=== PATIENT | male | born 1945 ===

== ENCOUNTER 2023-12-17 07:01 | Day surgery (SDC) | payer OTHER ==
--- NOTE | 2023-12-14 14:09 | RAD REPORT ---
EXAM DESCRIPTION: RAD - Chest Pa And Lat (2 Views) - 12/14/2023 1:40 pm CLINICAL HISTORY: Pre op pending cholecystectomy Chest pain. COMPARISON: CHEST PA AND LAT 2 VIEW dated 02/07/2007 TECHNIQUE: PA and lateral views of the chest were obtained. FINDINGS: The lungs are hyperexpanded compatible with COPD. The heart is upper limit of normal in si ze. No fracture or aggressive bony process. IMPRESSION: COPD without acute process identified. The USPSTF recommends annual screening for lung cancer with low-dose CT (LDCT) in adults aged 50 to 8 0 years who have a 20 pack-year smoking history and currently smoke or have quit within the past 15 y ears.
[2023-12-14 14:20] LABS: Absolute Monocytes 0.4 K/uL (0.1-1.3); Absolute Neutrophil 1.9 K/uL (1.8-8.0); Basophils % 0.3 % (0-1.3); Eosinophils % 0.9 % (0-4.4); Hematocrit 36.2 % (39.6-49.0); Hemoglobin 12.5 g/dL (13.6-17.9); Lymphocytes % 29.5 % (15.3-44.8); MCHC 34.5 g/dL (32.0-36.0); MCV 98.6 fL (80-100); Monocytes % 12.6 % (3.3-12.3); Neutrophils % 56.7 % (41.7-73.7); Nucleated Red Blood Cells % 0.1 % (0-0); Platelets 158 thou/uL (152-406); RBC Red Blood Cell Count 3.67 M/uL (4.33-5.43); Red Cell Distribution Width 14.5 % (12.1-15.2)
[2023-12-14 14:31] LABS: PT Prothrombin Time 12.8 SECONDS (9.4-12.5); Protime INR 1.15
[2023-12-14 14:32] LABS: PTT, Activated Partial Thromb 32.7 SECONDS (24.3-36.9)
[2023-12-14 14:36] LABS: Albumin 3.4 g/dL (3.4-5.0); Albumin/Globulin Ratio 0.9 (1.1-1.8); Anion Gap 8.6 mEq/L (5.0-15.0); Bilirubin Direct 0.3 mg/dL (0-0.2); Bilirubin Indirect, Calculated 0.5 mg/dL (0.2-0.8); Bilirubin Total 0.8 mg/dL (0.2-1.0); Globulin 3.7 g/dL (2.3-3.5); Potassium 3.6 mEq/L (3.5-5.1); Protein, Total 7.1 g/dL (6.4-8.2)
[2023-12-17] MEDS: NA CHLORIDE 0.9% 1,000 ML ONE (07:30)
[2023-12-17] MEDS ORDERED: propofoL 200 MG/20 ML VIAL IV ONE (07:57)
[2023-12-17] MEDS ORDERED: LIDOCAINE 2% MPF 5 ML VIAL ONE (07:57)
[2023-12-17] MEDS ORDERED: FENTANYL CITR 100 MCG/2 ML ONE ×2 (07:57→09:56)
[2023-12-17] MEDS ORDERED: ROCURONIUM 50 MG/5 ML VIAL IV ONE ×2 (07:57→09:54)
[2023-12-17] MEDS: CEFOXITIN SODIUM 1 GM/VIAL ONE (08:49)
[2023-12-17] MEDS ORDERED: ONDANSETRON 4 MG/2 ML VIAL ONE (08:58)
[2023-12-17] MEDS ORDERED: dexAMETHasone 4 MG/ML VIAL ONE (08:58)
[2023-12-17] MEDS: BUPIVACAINE 0.5% PF 10 ML VIAL ONE (08:59)
[2023-12-17] MEDS ORDERED: EPHEDRINE SULF 50 MG/ML VIAL ONE (09:05)
[2023-12-17] MEDS ORDERED: GLYCOPYRROLATE 0.2 MG/ML SYR ONE (09:08)
[2023-12-17] MEDS ORDERED: SUGAMMADEX SODIUM 200 MG/2 ML VIAL IV ONE (10:12)
[2023-12-17] MEDS ORDERED: Mastisol Adhesive Liq ONE (10:15)
--- NOTE | 2023-12-17 10:33 | P.OP ---
Date of Service: 12/17/23 Preop diagnosis: Chronic cholecystitis, cholelithiasis, choledocholithiasis and status post ERCP Postop diagnosis: Same with extensive adhesions and a umbilical hernia Procedure performed: Laparoscopic cholecystectomy, lysis of adhesions and repair of umbilical hernia Surgeon: Dick Mueller MD Newspaper Copy Editor: Parvin BAUMAN Estimated blood loss: Minimal Specimen: Gallbladder, hernia sac Findings: As above Anesthesia: General Complications: None Drains: None Fluids and blood products: Nonapplicable Disposition: Recovery room Operative note: Patient brought to the OR and placed in supine position. General anesthesia began. Patient prepped and draped in the usual sterile fashion. Marcaine 0.5% infiltrated locally. 15 blade used to make a 1 cm incision in the supra umbilical midline area. A 1 cm hernia identified with preperitoneal fat. Hernia sac and contents excised. #1 Vicryl stay suture placed. 12 mm trocar placed into the peritoneal cavity under direct vision. Pneumoperitoneum established. Laparoscopy revealed extensive adhesions. One 5 mm trocar placed under direct vision in the epigastric region just to the right of midline. Two 5 mm trocar placed under direct vision in the right subcostal region. Adhesions taken down with LigaSure. Bleeding controlled with LigaSure and cautery. Approximately 15 minutes of dissection took place. Fundus of the gallbladder identified and retracted superiorly. Infundibulum identified and retracted inferolaterally. Cystic duct and cystic artery clearly identified with blunt dissection. Clips placed and both structures divided. Cautery used to remove the gallbladder from the liver bed. Bleeding on the liver bed controlled with cautery. There was minimal oozing. Arixta and Surgicel used in the standard fashion and there was no further evidence of oozing noted. Gallbladder was retrieved to the umbilicus via Endo Catch bag. Right upper quad rant was irrigated before the Christina and Surgicel were placed. Effluent was clear and there was no evidence of bleeding or bile leakage appreciated. Subsequently all trocars removed under direct vision. Stay sutures tied to each other to close the hernia defect. Subcutaneous wounds irrigated and bleeding controlled cautery. 3-0 chromic used to approximate subcutaneous tissue and close skin. Sterile dressing applied. Patient awakened and taken recovery room in good general condition. CC:
[2023-12-17 10:46] VITALS: TEMP 98
[2023-12-17 11:04] VITALS: O2SAT 98
[2023-12-17] MEDS ORDERED: HYDROCODONE/APAP 5/325 MG TAB ONE (11:26)
[2023-12-17] MEDS: HYDROCODONE/APAP 5/325 MG TAB PO PRN (11:29)
[2023-12-17 12:59] VITALS: BP 146/69
--- NOTE | 2023-12-17 13:55 | EKG ---
Test Date: 2023-12-14 Test Time: 13:26:35 Law Firm Administrator: MADHU MEASUREMENT RESULTS: Intervals: Rate: 75 ME: QRSD: 90 QT: 406 QTc: 453 Salmon: P: ME: QRS: 36 T: 81 INTERPRETIVE STATEMENTS: Atrial fibrillation Septal infarct, age undetermined Abnormal ECG Compared to ECG 02/07/2007 15:35:08 Myocardial infarct finding now present Sinus rhythm no longer present Electronically Signed On 12-17-23 13:47:56 CDT by Girish Quijano
== END 2023-12-17 12:29 | disposition home or self-care (01) ==
LOC: OR 07:01
PROVIDERS: ATTEND Surgery
PROC: 0DNU4ZZ Release Omentum, Percutaneous Endoscopic Approach (ICD-10-PCS; 2023-12-17)
PROC: 0FT44ZZ Resection of Gallbladder, Percutaneous Endoscopic Approach (ICD-10-PCS; principal; 2023-12-17 08:30)
DX: K80.10 Calculus of gallbladder with chronic cholecystitis without obstruction (principal); K80.50 Calculus of bile duct without cholangitis or cholecystitis without obstruction; K42.9 Umbilical hernia without obstruction or gangrene
CPT/HCPCS: 93005; 85025; 80048; 36415; 85610; 82947 ×2; 80076; 88302; 88304; 85730; 83690; 71046; 47562; 49329; J2704; J1100; J2001; J3010 ×2; J0694; J2405; J7030